=== PATIENT | male | born 1990 | race Caucasian/White ===

== ENCOUNTER 2020-07-03 17:38 | Emergency (ER) | payer OTHER ==
[~2020-07-03] VITALS: Ht 195.6 cm; Wt 99.8 kg
[2020-07-03 18:24] LABS: ABSOLUTE LYMPHOCYTES 1.8 thou/uL (0.8-5.3); ABSOLUTE MONOCYTES 0.4 thou/uL (0.0-1.2); ABSOLUTE NEUTROPHILS 5.2 thou/uL (1.6-8.1); BASOPHILS 0.3 %; EOSINOPHILS 0.4 %; HEMATOCRIT 43.2 % (42.0-52.0); HEMOGLOBIN 15.6 gm/dL (14.0-18.0); MCH 30.5 pg (26.0-34.0); MCHC 36.1 g/dL (28.0-37.0); MCV 84.5 fL (80.0-100.0); MONOCYTES 4.8 %; MPV 8.5 fl. (7.2-11.1); NUCLEATED RBCS 0 /100WBC; PLATELET COUNT* 200 thou/uL (150-400); POLYS 70.5 %; RBC 5.11 mil/uL (4.50-6.00); RDW-CV 13.1 % (10.5-14.5); WBC 7.3 thou/uL (4.0-11.0)
[2020-07-03] MEDS ORDERED: PREDNISONE50 MG PO (18:49)
[2020-07-03] MEDS ORDERED: DIPHENHIST50 MG PO (18:49)
[2020-07-03 19:14] LABS: CALCIUM 8.4 mg/dL (8.5-10.1); CREATININE 1.4 mg/dL (0.6-1.3); POTASSIUM 3.4 mmol/L (3.5-5.1)
[2020-07-03 19:25] LABS: ALBUMIN 3.8 g/dL (3.4-5.0); MAGNESIUM 1.6 mg/dL (1.8-2.4); TOTAL BILIRUBIN 0.5 mg/dL (<0.1-1.0); TOTAL PROTEIN 6.8 g/dL (6.4-8.2)
[2020-07-03 19:38] VITALS: BP 127/82
--- NOTE | 2020-07-04 10:51 | EKG ---
[place] [address] ELECTROCARDIOGRAM REPORT Name: MANOJ,ALEXANDER Anny Room: [facility]#: [id number] Admission: 07/03/20 Attend Phys: Discharge: 07/03/20 Date of : 89 Date of Service: 07/03/201742 Report #: [id number] THIS REPORT FOR: //name// [facility] [place] ED Test Date: 2020-07-03 Test Time: 17:43:57 Pat Name: ALEXANDER ARANDA Department: Room: Gender: [employer] Assayer: JOSE : 1990 Requested By: Basilio De Oliveira Order Number: [id number] MD: Curt Haque Measurements Intervals [place] Rate: 92 P: 64 MT: 161 QRS: 34 QRSD: 127 T: 35 QT: 352 QTc: 436 Interpretive Statements Sinus rhythm Right bundle branch block No previous ECG available for comparison Electronically Signed On 07-04-2020 10:50:49 CDT by Curt Haque [email or web address] <ELECTRONICALLY SIGNED> By: Curt Haque MD, [facility] 07/04/20 1050 42 [id number] Curt Haque MD, FACC /EPI
== END 2020-07-03 19:37 | disposition home or self-care (01) ==
LOC: M.ERS 17:38
PROVIDERS: Emergency Medicine Emergency Medical Services
DX: T63.441A Toxic effect of venom of bees, accidental (unintentional), initial encounter (principal); L50.9 Urticaria, unspecified; Y92.89 Other specified places as the place of occurrence of the external cause